=== PATIENT | female | born 1995 | race Caucasian/White ===

== ENCOUNTER 2018-08-15 11:56 | Emergency (ER) | END 2018-08-15 13:53 | disposition home or self-care (01) ==

== ENCOUNTER 2018-09-03 13:26 | Outpatient (CLI) | payer OTHER ==
[~2018-09-03] VITALS: Ht 160 cm; Wt 74.0 kg
[2018-09-03] MEDS ORDERED: PNV11TAB PO (14:43)
[2018-09-03 14:46] VITALS: Ht 160 cm; Wt 74.0 kg
[2018-09-03 14:52] VITALS: BP 135/83; PULSE 109; RESP 18
--- NOTE | 2018-09-03 18:39 | TRIAGE ---
OB Triage Datetime Report Generated by CPN: 09/03/2018 18:39 Datetime: 09/03/2018 17:56 Labor Evaluation Frequency: 0 Monitor Mode: External Pattern: Normal: <= 5 Contractions in 10 Minutes Resting Tone [place]: Relaxed Contraction Comments: none noted Heart Rate FHR Baseline Rate: 150 Monitor Mode: External US FHR Baseline Changes: No Baseline Change Variability: Moderate 6-25 bpm Accelerations: 15X15 Decelerations: None Category: Category I Datetime: 09/03/2018 17:00 Labor Evaluation Frequency: 0 Monitor Mode: External Quality: Mild Pattern: Normal: <= 5 Contractions in 10 Minutes Resting Tone [place]: Relaxed Heart Rate FHR Baseline Rate: 145 Monitor Mode: External US FHR Baseline Changes: No Baseline Change Variability: Moderate 6-25 bpm Accelerations: 15X15 Decelerations: None Category: Category I Datetime: 09/03/2018 16:00 Labor Evaluation Frequency: 0 Monitor Mode: External Quality: Mild Pattern: Normal: <= 5 Contractions in 10 Minutes Resting Tone [place]: Relaxed Heart Rate FHR Baseline Rate: 150 FHR Baseline Changes: No Baseline Change Variability: Moderate 6-25 bpm Accelerations: 10X10 Decelerations: None Category: Category I Datetime: 09/03/2018 14:59 Assessment Type: Triage Maternal Assessment Level of Consciousness: Fully Conscious DTR's/Clonus: DTRs 2+; No Clonus Headache: Denies Blurred Vision: No Respiratory Effort: Unlabored; Regular Rhythm; Equal Expansion Breath Sounds, Left: Clear and Equal Breath Sounds, Right: Clear and Equal Nausea/Vomiting: Denies RUQ Epigastric Pain: Denies Lower Extremities Edema: None Degree: None Upper Extremities Edema: None Degree: None Facial Edema: None Fall Risk Assessment History of Falling: (0) No Secondary Diagnosis: (0) No Ambulatory Aid: (0) Bedrest/Nurse Assist IV Therapy: (0) No Gait: (0) Normal/Bedrest/Immobile Mental Status: (0) Oriented to Own Ability Fall Score: 0 Fall Risk Score Definition: No Risk: No action required Datetime: 09/03/2018 14:58 Labor Evaluation Frequency: 0 Monitor Mode: External Pattern: Normal: <= 5 Contractions in 10 Minutes Resting Tone [place]: Relaxed Heart Rate FHR Baseline Rate: 150 Monitor Mode: External US Variability: Moderate 6-25 bpm Accelerations: 15X15 Decelerations: None Category: Category I Datetime: 09/03/2018 14:56 Time of Arrival: 09/03/2018 13:21 EGA: 35.2 Arrived By: Ambulatory Arrived From: Home Movement: Present Contractions: Denies/Absent Rupture of Membranes: Denies Vaginal Discharge: Denies Recent Sexual Intercouse: Denies Abdominal Trauma: Not Applicable Initial Plan: nst bpp and efw
[2018-09-05] MEDS ORDERED: PREN-93 PO (11:38)
[2018-09-06] MEDS ORDERED: CITRACAL PO (15:26)
[2018-09-06] MEDS ORDERED: FOLI0.4T2 PO (15:26)
[2018-09-06] MEDS ORDERED: ASCO250T96 PO (15:26)
--- NOTE | 2018-10-23 18:18 | PN ---
Triage Information Date/Time Reason for visit: IUGR for NST BPP Weeks of Gestation 35+ /Para n/a Diabetes: none Hypertention: none Objective Heart Rate: 140's Contractions: None Disposition: Discharge Assessment/Plan BPP 07/25 Discharged with precautions Questions answered Precautions discussed DAVID VALLECILLO M.D. Oct 23, 2018 18:18
== END 2018-09-03 18:33 | disposition home or self-care (01) ==
LOC: L-D 13:26 → OBT 13:26
PROVIDERS: ATTEND Obstetrics & Gynecology
DX: O36.5930 Maternal care for other known or suspected poor fetal growth, third trimester, not applicable or unspecified (principal); Z3A.35 35 weeks gestation of pregnancy
CPT/HCPCS: 76815; 76818; 76820; Z7500; G0463

== ENCOUNTER 2018-09-05 11:24 | Outpatient (CLI) | END 2018-09-05 16:30 | disposition home or self-care (01) ==

== ENCOUNTER 2018-09-06 15:07 | Outpatient (CLI) | END 2018-09-06 21:00 | disposition home or self-care (01) ==

== ENCOUNTER 2018-09-07 11:50 | Inpatient (IN) | END 2018-09-11 09:20 | disposition home or self-care (01) | DRG 788 ==